=== PATIENT | female | born 1965 | race Two or more races ===

== ENCOUNTER 2025-08-12 08:17 | Emergency (ER) | payer OTHER ==
[~2025-08-12] VITALS: Ht 160 cm; Wt 84.8 kg
[2025-08-12] MEDS ORDERED: ZESTRIL20 MG (08:31)
[2025-08-12] MEDS ORDERED: DICYCLOMIN10 MG/5 M1 (08:32)
[2025-08-12] MEDS ORDERED: FAMOtidine 10 MG/ML (4ML VIAL) IV PUSH ONE (09:15)
[2025-08-12] MEDS ORDERED: ONDANSETRON HCL 4 MG in 0.9 % SODIUM CHLORIDE 50 ML IV ONE (09:15)
[2025-08-12] MEDS ORDERED: 0.9 % SODIUM CHLORIDE 1,000 ML IV SCH (09:15)
[2025-08-12 09:55] LABS: BASO % 0.6 % (0.1-1.2); EOS # 0.05 (0.04-0.54); EOS % 1.0 % (0.7-7.0); LYMPH # 1.57 (1.18-3.74); LYMPH % 31.7 % (19.3-53.1); MEAN PLATELET VOLUME 10.70 fl (9.4-12.4); MONO # 0.37 (0.24-0.82); MONO % 7.5 % (4.7-12.5); NEUT # 2.92 (1.56-6.13); NEUT % 58.8 % (34.0-71.1); RED CELL DISTRIBUTION WIDTH 11.7 % (11.6-14.4)
[2025-08-12 10:01] LABS: ERYTHROCYTE SEDIMENTATION RATE 53 mm/hr (0-30)
[2025-08-12 10:33] LABS: ALT/SGPT 21.0 U/L (12-78); AST/SGOT 15.0 U/L (15-37); BILIRUBIN TOTAL 0.5 mg/dL (0.3-1.2); BUN CREA RATIO 9.0 (7.0-25.0); CREATININE SERUM 0.93 mg/dL (0.55-1.02); GFR 61.71; GLOBULINA 4.2 G/DL (2.4-3.5); GLUCOSE FASTING 102.0 mg/dL (65-100); INR 1.04; OSMOLALITY SERUM 274.0 MOSM/KG (275-295)
[2025-08-12 12:09] LABS: URINE APPEARANCE Clear; URINE BILIRRUBIN Negative (NEGATIVE); URINE BLOOD Moderate; URINE COLOR Yellow; URINE GLUCOSE Negative (NEGATIVE); URINE KETONE Negative (NEGATIVE); URINE LEUKOCYTE Large; URINE NITRATE Negative; URINE PROTEIN Negative (NEGATIVE); URINE UROBILINOGEN 0.2 E.U./dl
[2025-08-12 12:14] LABS: URINE BACTERIA 1983.5 uL (0.0-1933); URINE EPITHELIAL CELLS 12.4 uL (0.0-38.8); URINE RBC 86.2 uL (0.0-20.8); URINE WBC 187.0 uL (0.0-23.2)
[2025-08-12 12:17] LABS: URINE CAST 0.58 uL (0.0-1.40)
[2025-08-12] MEDS ORDERED: CIPRO500 MG PO (13:31)
[2025-08-12] MEDS ORDERED: 8HR ARTHRITIS650 M1 PO (13:31)
[2025-08-12] MEDS ORDERED: INTESTINEX680 M1 PO (13:31)
[2025-08-12] MEDS ORDERED: PEPCID AC20 MG PO (13:31)
[2025-08-12] MEDS ORDERED: METRONIDAZOLE500 MG PO (13:31)
== END 2025-08-12 14:29 | disposition home or self-care (01) ==
LOC: ER 08:18
PROVIDERS: General Practice
DX: K62.89 Other specified diseases of anus and rectum (principal); R19.7 Diarrhea, unspecified; I10 Essential (primary) hypertension; K61.0 Anal abscess